=== PATIENT | male | born 1960 | race Caucasian/White ===

== ENCOUNTER → 2016-10-13 | Day surgery (SDC) | payer OTHER ==
[~2016-10-13] MED LIST: ABILIFY20 MG PO; ACETAMINOPHEN650 M1 PO; ACID REDUCER20 MG PO; AL-MAG HYDROX-S30 M1 PO; ALBUTEROL17 G1 IH; ALBUTEROL17 GM INH; ALPRAZOLAM PO; AMBIEN10 MG PO; ANTI-DIARRHEAL2 M1 PO; ASPIR-TRIN325 MG PO; ASPIRIN EC650 MG PO; ASPIRIN PO; ATENOLOL PO; ATENOLOL50 MG PO; ATIVAN0.5 M1; BENTYL10 M1 PO; CERTAGEN PO; CYANOCOBALAM1000 MCG PO; CYMBALTA30 MG PO; DESYREL100 MG PO; DONEPEZIL HCL10 MG PO; DOXEPIN HCL150 MG PO; EFFER-K 20 MEQ20 MEQ PO; FAMOTIDINE PO; FIBERCON625 MG PO; FOLIC ACID PO; FOLIC ACID1 MG PO; FOLTRATE PO; GABAPENTIN800 MG PO; HYDROXYZINE HCL50 MG PO; IBUPROFEN PO; IMDUR PO; K-DUR20 ME1 PO; K-DUR20 ME2 PO; K-LOR20 MEQ PO; KCL PO; LEVETIRACETAM1000 MG PO; LEVETIRACETAM500 MG PO; LISINOPRIL10 MG PO; LISINOPRIL2.5 MG PO; LISINOPRIL5 MG PO; LORTAB 5/500 TA1 TA1 PO; LORTAB 7.5-5001 TAB PO; MAALOX MAXIMUM355 ML PO; MEDROL PO; MILK OF MAGNESIA PO; MULTI VITAMIN1 EACH PO; MULTI-DAY1 TAB PO; MULTIVITAMINS W1 TAB PO; NAMENDA10 MG PO; NEURONTIN600 MG PO; NICOTINE TRANSD21 MG EXT; NICOTINE TRANSD21 MG TD; NICOTINE1 EAC1 TD; NON-ASPIRIN PA325 M1 PO; OMEPRAZOLE10 MG PO; OMEPRAZOLE40 MG PO; ONDANSETRON ODT4 MG PO; ORUDIS75 M1 DOB; PAXIL PO; PAXIL40 MG; PAXIL40 MG PO; PHENERGAN PO; PHENERGAN VC W120 M1 PO; PHENERGAN25 M1 PO; PHENERGAN25 MG PO; PREDNISONE PO; PREPARATION H O28 GM PR; PRILOSEC PO; PROTONIX PO; SUPER B-50 COMP1 CAP PO; SYMBICORT INH; SYNTHROID0.05 MG PO; TENORMIN25 MG PO; THIAMINE HCL100 MG PO; VISTARIL50 MG PO; VITAMIN B-1100 M1 PO; VOLTAREN50 MG PO; VOLTAREN75 MG PO; WALGREENS PHARMACY; XANAX1 MG PO; ZANTAC PO; ZANTAC150 M1 PO; ZITHROMAX PO; ZITHROMAX1 G/PKT PO; ZOFRAN PO; ZOLOFT PO; ZOLOFT100 MG PO
--- NOTE | ~2016-10-13 | ECT ---
Unit #: [id number] #: [id number] Patient: EARNEST COOK [id number] [place] [id number] O MR#: [id number] NAME: EARNEST COOK ROOM: Age: 55 Sex: M Admission Date: 10/13/2016 : 1960 Discharge Date: Attending Physician: Amador Lacey M.D. Primary Care Physician: Suri Patrick ECT NOTE DATE OF TREATMENT 10/13/2016 TREATMENT NUMBER 1 TREATMENT MODALITY Unilateral ECT ANESTHESIA Glycopyrrolate: 0.2 mg Brevital: 150 mg Succinylcholine: 100 mg TREATMENT PARAMETERS Charge: 72 millicoulombs Pulse Width: 1.0 milliseconds Frequency: 30 Hertz Duration: 1.5 seconds Current: 800 milliamps TREATMENT DELIVERED Energy: 17.7 joules Impedance: 303 ohms Charge: 72 millicoulombs SEIZURE MEASURES OMS: 18 seconds EE seconds COMPLICATIONS None. SUMMARY The patient had a good seizure on his initial stimulus for his dose titration. We would plan on bringing him back for another ECT on Sunday but apparently he is being discharged this weekend and I will just followup with him as an outpatient. DIFFERENTIAL DIAGNOSES AXIS I: F33.2. F10.10. AXIS II: F60.9. AXIS III: Nothing acute. Unit #: [id number] #: [id number] Patient: EARNEST COOK Dictated by... Cornelio Maya/mode TD: 10/13/2016 17:39 JOB #: [id number] ECT NOTE X Amador Lacey MD <ELECTRONICALLY SIGNED> 04/10/17 1702 X ECT
== END | disposition home or self-care (01) ==
LOC: CSUR 07:24
DX: F33.2 Major depressive disorder, recurrent severe without psychotic features (principal); K21.9 Gastro-esophageal reflux disease without esophagitis; J44.9 Chronic obstructive pulmonary disease, unspecified; K22.70 Barrett's esophagus without dysplasia; R00.2 Palpitations; I11.9 Hypertensive heart disease without heart failure; N40.0 Benign prostatic hyperplasia without lower urinary tract symptoms; Z79.899 Other long term (current) drug therapy; F17.200 Nicotine dependence, unspecified, uncomplicated; F10.10 Alcohol abuse, uncomplicated; Z88.0 Allergy status to penicillin; Z88.8 Allergy status to other drugs, medicaments and biological substances; Z91.018 Allergy to other foods
CPT/HCPCS: 90870; 93005; J0330; J1885